=== PATIENT | male | born 1985 | race Asian ===

== ENCOUNTER 2021-08-22 15:33 | Emergency (ER) | payer OTHER ==
[~2021-08-22] VITALS: Ht 170.2 cm; Wt 81.8 kg
[2021-08-22] MEDS ORDERED: LIDOCAINE 5% TRANSDERMAL PATCH TD ONE (16:30)
[2021-08-22] MEDS ORDERED: IBUPROFEN 600 MG TABLET PO ONE (16:30)
[2021-08-22] MEDS ORDERED: METHOCARBAMOL 500 MG TABLET PO ONE (16:30)
[2021-08-22 18:29] VITALS: BP 141/93
== END 2021-08-22 19:31 | disposition home or self-care (01) ==
LOC: EMS 15:40
DX: M54.2 Cervicalgia (principal); M54.50 Low back pain, unspecified; V49.49XA Driver injured in collision with other motor vehicles in traffic accident, initial encounter; Y93.89 Activity, other specified; Y92.89 Other specified places as the place of occurrence of the external cause; Y99.8 Other external cause status
CPT/HCPCS: 72040; 72100; 99284; Z7502; Z7610